=== PATIENT | female | born 1995 | race Caucasian/White ===

== ENCOUNTER 2016-12-05 11:15 | Emergency (ER) | payer SELFPAY ==
[~2016-12-05] VITALS: Ht 157.5 cm; Wt 58.2 kg
[2016-12-05 13:26] LABS: HEMATOCRIT 42.9 % (36.0-46.0); MCH 28.8 PG (29.0-34.0); MCHC 32.2 G/DL (30.0-36.0); MCV 89.6 FL (83-99); MEAN PLAT.VOLUME 12.1 uM^3 (9.5-12.4); PLATELET COUNT 217 K/uL (156-360); RBC DIS.WIDTH-CV 12.5 % (11.8-14.6); RBC DIS.WIDTH-SD 41.4 % (39-53); RED BLOOD COUNT 4.79 M/uL (3.80-5.20); WHITE BLOOD COUNT 5.7 K/uL (4.1-10.2)
[2016-12-05 13:29] LABS: CHLORIDE 108 mEq/L (99-109); POTASSIUM 4.6 mEq/L (3.7-5.4); SODIUM 142 mEq/L (136-147)
[2016-12-05 13:31] LABS: GLUCOSE 86 mg/dL (70-99)
[2016-12-05 13:32] LABS: ANION GAP 10 MEQ/L (2-14)
[2016-12-05 13:35] LABS: GFR ESTIMATE (CALCULATED) > 59 mL/min/
[2016-12-05 13:36] LABS: UREA NITROGEN (BUN) 6 mg/dL (9-23)
[2016-12-05 13:38] LABS: TROP-I INTERPRETATION NEGATIVE; TROPONIN-I < 0.01 ng/mL (0.0-0.30)
[2016-12-05 13:44] LABS: QUANTITATIVE HCG < 4.0 MIU/ML
[2016-12-05 14:10] VITALS: BP 109/65
== END 2016-12-05 14:17 | disposition home or self-care (01) ==
LOC: EME 11:15
DX: R07.9 Chest pain, unspecified (principal); F17.200 Nicotine dependence, unspecified, uncomplicated; Z88.1 Allergy status to other antibiotic agents; Z88.0 Allergy status to penicillin
CPT/HCPCS: 71020; 80048; 84484; 84702; 85027; 93005; 99281; 99283

== ENCOUNTER 2017-02-24 16:59 | Emergency (ER) | payer OTHER ==
[~2017-02-24] VITALS: Ht 157.5 cm; Wt 59.7 kg
[2017-02-24 17:57] LABS: HEMATOCRIT 39.4 % (36.0-46.0); MCH 29.7 PG (29.0-34.0); MCHC 33.5 G/DL (30.0-36.0); MCV 88.5 FL (83-99); MEAN PLAT.VOLUME 11.6 uM^3 (9.5-12.4); PLATELET COUNT 210 K/uL (156-360); RBC DIS.WIDTH-CV 12.3 % (11.8-14.6); RBC DIS.WIDTH-SD 39.8 % (39-53); RED BLOOD COUNT 4.45 M/uL (3.80-5.20); WHITE BLOOD COUNT 7.5 K/uL (4.1-10.2)
[2017-02-24 20:38] LABS: ADD MIUA? YES; BILIRUBIN NEGATIVE; BLOOD SMALL; COLOR YELLOW ((YELLOW)); GLUCOSE (STRIP) NEGATIVE; KETONES 5; LEUKOCYTES LARGE; NITRITE NEGATIVE; PROTEIN (STRIP) NEGATIVE; SPECIFIC GRAVITY 1.013 (1.000-1.030); UROBILINOGEN 0.2 MG/DL (0.2-1.0)
[2017-02-24 20:48] LABS: BACTERIA RARE /HPF; EPITHELIAL CELLS 2+ /HPF; MUCUS TRACE /LPF; UCUL ADDED? YES; WHITE BLOOD CELLS TNTC /HPF (0-5)
[2017-02-24 21:41] VITALS: BP 100/61
[2017-02-24] MEDS ORDERED: MACROBID100 MG PO (21:44)
== END 2017-02-24 21:52 | disposition home or self-care (01) ==
LOC: EME 16:59
DX: O9A.311 Physical abuse complicating pregnancy, first trimester (principal); O23.41 Unspecified infection of urinary tract in pregnancy, first trimester; O99.331 Smoking (tobacco) complicating pregnancy, first trimester; F17.200 Nicotine dependence, unspecified, uncomplicated; Y04.8XXA Assault by other bodily force, initial encounter; Z3A.01 Less than 8 weeks gestation of pregnancy; Z88.1 Allergy status to other antibiotic agents; Z88.0 Allergy status to penicillin
CPT/HCPCS: 76801; 81003; 84702; 85027; 87086; 99281; 99283

== ENCOUNTER 2017-02-25 23:01 | Emergency (ER) | payer OTHER ==
[~2017-02-25] VITALS: Ht 157.5 cm; Wt 58.5 kg
[~2017-02-25 23:01] MED LIST: MACROBID100 MG PO
[2017-02-25 23:55] LABS: HEMATOCRIT 37.7 % (36.0-46.0); MCH 29.7 PG (29.0-34.0); MCHC 33.4 G/DL (30.0-36.0); MCV 88.9 FL (83-99); MEAN PLAT.VOLUME 11.5 uM^3 (9.5-12.4); PLATELET COUNT 204 K/uL (156-360); RBC DIS.WIDTH-CV 12.2 % (11.8-14.6); RBC DIS.WIDTH-SD 39.8 % (39-53); RED BLOOD COUNT 4.24 M/uL (3.80-5.20); WHITE BLOOD COUNT 7.9 K/uL (4.1-10.2)
[2017-02-26 00:40] VITALS: BP 117/76
== END 2017-02-26 00:40 | disposition home or self-care (01) ==
LOC: EME 23:01
DX: O20.0 Threatened abortion (principal); O99.331 Smoking (tobacco) complicating pregnancy, first trimester; Z3A.01 Less than 8 weeks gestation of pregnancy; F17.200 Nicotine dependence, unspecified, uncomplicated
CPT/HCPCS: 81003; 84702; 85027; 99281; 99282

== ENCOUNTER 2017-04-16 10:57 | Emergency (ER) | payer OTHER ==
[~2017-04-16] VITALS: Ht 157.5 cm; Wt 58.9 kg
[2017-04-16 12:45] LABS: ADD MIUA? NO; BILIRUBIN NEGATIVE; BLOOD NEGATIVE; COLOR STRAW ((YELLOW)); GLUCOSE (STRIP) NEGATIVE; KETONES NEGATIVE; LEUKOCYTES NEGATIVE; NITRITE NEGATIVE; PROTEIN (STRIP) NEGATIVE; SPECIFIC GRAVITY 1.005 (1.000-1.030); UROBILINOGEN 0.2 MG/DL (0.2-1.0)
[2017-04-16 13:00] LABS: HEMATOCRIT 37.7 % (36.0-46.0); MCH 30.3 PG (29.0-34.0); MCV 89.1 FL (83-99); MEAN PLAT.VOLUME 11.8 uM^3 (9.5-12.4); PLATELET COUNT 192 K/uL (156-360); RBC DIS.WIDTH-CV 12.4 % (11.8-14.6); RBC DIS.WIDTH-SD 40.9 % (39-53); RED BLOOD COUNT 4.23 M/uL (3.80-5.20); WHITE BLOOD COUNT 6.2 K/uL (4.1-10.2)
[2017-04-16 13:07] LABS: CHLORIDE 108 mEq/L (99-109); POTASSIUM 3.5 mEq/L (3.7-5.4); SODIUM 138 mEq/L (136-147)
[2017-04-16 13:08] LABS: GLUCOSE 100 mg/dL (70-99)
[2017-04-16 13:10] LABS: ANION GAP 8 MEQ/L (2-14)
[2017-04-16 13:12] LABS: GFR ESTIMATE (CALCULATED) > 59 mL/min/
[2017-04-16 13:13] LABS: UREA NITROGEN (BUN) 3 mg/dL (9-23)
[2017-04-16 13:38] LABS: QUANTITATIVE HCG 54414.8 MIU/ML
[2017-04-16 14:25] LABS: TOTAL BILIRUBIN 0.5 mg/dL (0.0-1.0)
[2017-04-16 14:26] LABS: ALKALINE PHOSPHATASE 59 IU/L (3-129)
[2017-04-16 14:29] LABS: DIRECT BILIRUBIN 0.2 mg/dL (0.0-0.3)
[2017-04-16 14:30] LABS: LIPASE 32 U/L (1.0-51.0)
[2017-04-16 14:50] VITALS: BP 120/79
== END 2017-04-16 14:50 | disposition home or self-care (01) ==
LOC: EME 10:57
PROVIDERS: Physician Assistant
DX: O26.891 Other specified pregnancy related conditions, first trimester (principal); R10.31 Right lower quadrant pain; R19.7 Diarrhea, unspecified; Z3A.13 13 weeks gestation of pregnancy; Z87.891 Personal history of nicotine dependence
CPT/HCPCS: 76705; 76801; 80048; 80076; 81003; 83690; 84702; 85027; 99281; 99284; J7030

== ENCOUNTER 2017-07-06 15:51 | Emergency (ER) | payer OTHER ==
[~2017-07-06] VITALS: Ht 157.5 cm; Wt 61.9 kg
[2017-07-06 20:39] VITALS: BP 112/77
== END 2017-07-06 20:40 | disposition home or self-care (01) ==
LOC: EME 15:51
PROVIDERS: Physician Assistant Medical
DX: J10.1 Influenza due to other identified influenza virus with other respiratory manifestations (principal); Z87.891 Personal history of nicotine dependence; Z88.0 Allergy status to penicillin; Z88.1 Allergy status to other antibiotic agents
CPT/HCPCS: 73552; 87502; 99281; 99284